=== PATIENT | male | born 1960 | race Two or more races ===

== ENCOUNTER 2025-06-16 11:46 | Day surgery (SDC) | payer MEDICARE, MEDICAID ==
[~2025-06-16] VITALS: Ht 180.3 cm; Wt 77.1 kg
[~2025-06-16 11:46] MED LIST: MULT-732 OR
--- NOTE | 2025-06-16 14:28 | DVHHP2 ---
GI H&P Pre-Op Assessment Date: 06/16/25 Chief complaint: Epigastric pain and blood in stool HPI: per clinic note Past medical history: per clinic note Past surgical history: per clinic note Family history: per clinic note Physical exam: General: NAD, AAOX3 HEENT: PERRL, no scleral icterus, normal hearing, gums without lesions or bleeding, oropharynx clear without erythema or exudate. Neck: Supple without enlargement of the thyroid, or lymphadenopathy. Chest: Normal size and shape, no tenderness, lung galeana clear to auscultation and percussion, nonlabored breathing. Heart: RRR, no murmur Abdomen: non-distended, no tenderness to palpation, +BS, no hepatosplenomegaly Extremities: no edema Neurological: CN II-XII intact, sensation intact in all extremities, 5+ strength in all extremities Skin: No rashes, No jaundice Assessment: - Epigastric pain and blood in stool Plan: - EGD - Colonoscopy - Risks (bleeding, infection, perforation, reaction to sedation medications and cardiopulmonary arrest) and benefit of the procedure were explained to patient. Patient agrees to undergo the procedure. SOTO VILLARREAL MD Jun 16, 2025 14:28
[2025-06-16] MEDS ORDERED: fentaNYL CITRATE 100 MCG/2 ML VL ONE (14:39)
[2025-06-16 15:03] VITALS: PULSE 77; RESP 15; TEMP 97.4; O2SAT 97
--- NOTE | 2025-06-16 15:03 | DVHOP2 ---
Operative Report DATE OF OPERATION: 06/16/25 PROCEDURE: Upper Endoscopy. PREOPERATIVE INDICATION: The patient is a 64 -year-old male undergoing endoscopy for epigastric pain. POSTOPERATIVE DIAGNOSES: 1. Duodenitis 2. Antral gastritis PROCEDURE PERFORMED BY: Jimmy Colbert SCOPE: Olympus videoendoscope. ASA CLASS: 3 PREOPERATIVE MEDICATIONS: MAC with Dr Montano PROCEDURE IN DETAIL: After obtaining an informed consent, the patient was placed on his back. The patient was then sedated with the above medications. A bite block was placed between his teeth. The endoscope was then passed through the oropharynx, into the esophagus, and through the stomach and pylorus up to the second and third part of the duodenum. There was duodenitis. Duodenal biopsies were obtained using cold forceps. There was antral gastritis. Antral biopsies were obtained using cold forceps. The GE junction was normal in appearance at 37 cm. The esophagus was normal in appearance. The endoscope was then withdrawn. The patient tolerated the procedure well without difficulty. COMPLICATIONS : None SPECIMENS: Duodenal biopsies, Antral biopsies DISPOSITION: D/C to home PLAN: 1. Await for biopsy result JIMMY COLBERT MD Jun 16, 2025 15:03
[2025-06-16] MEDS ORDERED: PROPOFOL 10 MG/ML 20 ML IV ONE (15:05)
--- NOTE | 2025-06-16 15:05 | DVHDS2 ---
Physician Discharge Progress N Final Diagnosis: Duodenitis, antral gastritis Internal hemorrhoids Operations or Procedures: Operations or Procedures EGD with biopsy. Colonoscopy Condition on Discharge: Good Disposition: Home Discharge Instructions: Diet: Regular Activity: No Restrictions, As Tolerated Medications: Resume previous home medications Follow Up Care: Discharge Statement: "Patient was advised to return to the ER or call 911 if any headaches, dizziness, shortness of breath, chest pain, abdominal pain, bleeding, fevers, or worsening of medical condition. Patient was counseled about treatment plan, medications, possible side effects, patientverbalized understanding. All questions were answered to the best of my ability. This discharge took greater then 30 minutes in planning, reviewing documentation, counseling the patient, and discussing with other team members." SOTO VILLARREAL MD Jun 16, 2025 15:05
--- NOTE | 2025-06-16 15:05 | DVHOP2 ---
Operative Report DATE OF OPERATION: 06/16/25 PROCEDURE: Colonoscopy. PREOPERATIVE INDICATION: The patient is a 64 -year-old male undergoing colonoscopy for blood in the stool POSTOPERATIVE DIAGNOSES: 1. Internal hemorrhoids PROCEDURE PERFORMED BY: Jimmy Colbert M.D. SCOPE: Olympus videocolonoscope. ASA CLASS: 3 PREOPERATIVE MEDICATIONS: MAC with Dr Montano PROCEDURE IN DETAIL: After obtaining an informed consent, the patient was placed on left lateral decubitus position. He was then sedated with the above medications. A rectal examination was performed that was normal. The colonosc ope was then passed through the anus into the rectosigmoid and through the descending, transverse, and ascending colon up to the cecum with visualization of the appendiceal orifice, base of the cecum and the ileocecal valve. No large mass or polyp was observed. There were internal hemorrhoids. The prep was suboptimal so small polyps might have been missed. The colonoscope was then withdrawn. The patient tolerated the procedure well without difficulty. WITHDRAWAL TIME: 6 minutes QUALITY OF THE PREP: Onyx Bowel Prep score: 4 COMPLICATIONS : None SPECIMENS: None DISPOSITION: D/C to home PLAN: 1. Repeat colonoscopy in three years for colon cancer screening due to the suboptimal prep. JIMMY COLBERT MD Jun 16, 2025 15:05
[2025-06-16 15:30] VITALS: BP 133/82; PULSE 57; RESP 20; O2SAT 97
== END 2025-06-16 15:40 | disposition home or self-care (01) ==
LOC: GI 11:46
PROVIDERS: ATTEND Internal Medicine Gastroenterology
DX: K92.1 Melena (principal); R10.13 Epigastric pain; K29.50 Unspecified chronic gastritis without bleeding; K31.A0 Gastric intestinal metaplasia, unspecified; K29.80 Duodenitis without bleeding; K64.8 Other hemorrhoids; Z98.890 Other specified postprocedural states; Z79.899 Other long term (current) drug therapy
CPT/HCPCS: 43239; 45378; 88305; 88342; J2704; J3010; J7030